=== PATIENT | female | born 1930 | race American Indian/Alaskan Native ===

== ENCOUNTER 2019-03-05 16:44 | Emergency (ER) | payer MEDICARE, OTHER, BC ==
[2019-03-05 17:27] VITALS: RESP 18; O2SAT 98; BMI 25.9
[2019-03-05 17:29] VITALS: TEMP 98.6
--- NOTE | 2019-03-05 17:43 | ED PDOC ---
Arrival/HPI - General Chief Complaint: Eye Problem Historian: Patient - History of Present Illness Narrative History of Present Illness (Text): 03/05/19 18:12 88 year old female, with a past medical history of lens implants(2016), who presents to the emergency department complaining of left eye redness and discharge onset yesterday. Patient reports this has never happened before and states "this is new". Patient denies any trauma, change in vision, fevers, headaches, chills, dizziness, nausea, vomiting, chest pain, or any other symptoms. Time/Duration: 24 hours Symptom Onset: Gradual Symptom Course: Unchanged Activities at Onset: Light Context: Home Past Medical History - Provider Review Nursing Documentation Reviewed: Yes - Infectious Disease Hx of Infectious Diseases: None - Tetanus Immunization Tetanus Immunization: Unknown - Cardiac Hx Hypertension: Yes - Endocrine/Metabolic Hx Hypothyroidism: Yes - Musculoskeletal/Rheumatological Hx Falls: No - Psychiatric Hx Depression: No Hx Emotional Abuse: No Hx Physical Abuse: No Hx Substance Use: No - Surgical History Hx Hysterectomy: Yes Hx Tubal Ligation: Yes - Anesthesia Hx Anesthesia: Yes - Suicidal Assessment Feels Threatened In Home Enviroment: No Family/Social History - Physician Review Nursing Documentation Reviewed: Yes Family/Social History: Unknown Family HX Smoking Status: Never Smoked Hx Alcohol Use: No Hx Substance Use: No Hx Substance Use Treatment: No Allergies/Home Meds Allergies/Adverse Reactions: Allergies No Known Allergies Allergy (Verified 03/05/19 17:00) Home Medications: Home Meds Medication Instructions Recorded Confirmed Dorzolamide 2% [Trusopt] 1 drop OU BID 05/03/14 03/05/19 Levothyroxine Sodium 50 mcg PO DAILY 05/03/14 03/05/19 Glimepiride [amaRYL] 2 mg PO DAILY 01/11/16 03/05/19 Gabapentin [Neurontin] 300 mg PO HS 03/05/19 03/05/19 Ropinirole HCl 0.25 mg PO HS 03/05/19 03/05/19 Rosuvastatin Calcium [Crestor] 10 mg PO HS 03/05/19 03/05/19 amLODIPine [Norvasc] 5 mg PO DAILY 03/05/19 03/05/19 Review of Systems - Physician Review All systems were reviewed & negative as marked: Yes - Review of Systems Constitutional: absent: Fevers Eyes: Eye Pain, Other (+redness, +discharge to the left eye) Respiratory: absent: SOB, Cough Cardiovascular: absent: Chest Pain Gastrointestinal: absent: Abdominal Pain, Nausea, Vomiting Neurological: absent: Headache, Dizziness Endocrine: absent: Diaphoresis Physical Exam Vital Signs Reviewed: Yes Vital Signs Temp Pulse Resp BP Pulse Ox 03/05/19 17:26 98.6 F 82 18 183/99 H 98 03/05/19 17:00 98.6 F 82 18 183/99 H 98 Temperature: Afebrile Blood Pressure: Hypertensive Pulse: Regular Respiratory Rate: Normal Appearance: Positive for: Well-Appearing, Non-Toxic, Comfortable Pain Distress: None Mental Status: Positive for: Alert and Oriented X 3 - Systems Exam Head: Present: Atraumatic, Normocephalic Pupils: Present: PERRL Extroacular Muscles: Present: EOMI Conjunctiva: Present: Injected (left), Other (left eye +discharge. tissue protruding from medial aspect of globe, not including iris. ) Mouth: Present: Moist Mucous Membranes Neck: Present: Normal Range of Motion Respiratory/Chest: Present: Clear to Auscultation, Good Air Exchange. No: Respiratory Distress, Accessory Muscle Use Cardiovascular: Present: Regular Rate and Rhythm, Normal S1, S2. No: Murmurs Abdomen: No: Tenderness, Distention, Peritoneal Signs Back: Present: Normal Inspection Upper Extremity: Present: Normal Inspection. No: Cyanosis, Edema Lower Extremity: Present: Normal Inspection. No: Edema Neurological: Present: GCS=15, Speech Normal Skin: Present: Warm, Dry, Normal Color. No: Rashes Psychiatric: Present: Alert, Oriented x 3, Normal Insight, Normal Concentration Medical Decision Making ED Course and Treatment: 03/05/19 17:42 Impression: 88 year old female presents to the emergency department complaining of redness and discharge in left eye. Differential Diagnosis included but are not limited to: Conjunctivitis Plan: -- Reassess and disposition Prior Visits: Notes and results from previous visits were reviewed. 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 Patient is aware and agrees with plan. - Scribe Statement The provider has reviewed the documentation as recorded by the Christyiblin Duarte All medical record entries made by the Christyiblin were at my direction and personally dictated by me. I have reviewed the chart and agree that the record accurately reflects my personal performance of the history, physical exam, medical decision making, and the department course for this patient. I have also personally directed, reviewed, and agree with the discharge instructions and disposition. Disposition/Present on Arrival - Present on Arrival Any Indicators Present on Arrival: No History of DVT/PE: Yes History of Uncontrolled Diabetes: No Urinary Catheter: No History of Decub. Ulcer: No History Surgical Site Infection Following: None - Disposition Have Diagnosis and Disposition been Completed?: Yes Diagnosis: Conjunctivitis, Pterygium eye Disposition: HOME/ ROUTINE Disposition Time: 18:15 Condition: GOOD Discharge Instructions (ExitCare): Conjunctivitis ([place]) (DC) Additional Instructions: SIMON MOREIRA, thank you for letting us take care of you today. The emergency medical care you received today was directed at your acute symptoms. If you were prescribed any medication, please fill it and take as directed. It may take several days for your symptoms to resolve. Return to the Emergency Department if your symptoms worsen, do not improve, or if you have any other problems. Please contact your doctor or call one of the physicians/clinics you have been referred to that are listed on the Patient Visit Information form that is included in your discharge packet. Bring any paperwork you were given at discharge with you along with any medications you are taking to your follow up visit. Our treatment cannot replace ongoing medical care by a primary care provider outside of the emergency department. Thank you for allowing the [facility] team to be part of your care today. Follow up with your eye doctor in 3 days (Friday) for re-evaluation. Prescriptions: Neomycin/Polymyxin B/Dexametha [Maxitrol] 1 oin OP TID #1 oin Referrals: Severino Bolanos MD [Medical Doctor] - Follow up with primary Forms: [employer] ([place]ien)
[2019-03-05 18:51] VITALS: BP 178/87; PULSE 80
== END 2019-03-05 18:58 | disposition home or self-care (01) ==
LOC: ED 16:44
DX: H11.002 Unspecified pterygium of left eye (principal); H10.9 Unspecified conjunctivitis